=== PATIENT | female | born 2000 | race Native Hawaiian/Other Pacific Islander ===

== ENCOUNTER 2021-12-14 10:17 | Emergency (ER) | payer SELFPAY ==
[~2021-12-14] VITALS: Ht 152.4 cm; Wt 75.0 kg
[2021-12-14 11:54] VITALS: BP 106/64
== END 2021-12-14 12:02 | disposition home or self-care (01) ==
LOC: ER 10:17
DX: T19.2XXA Foreign body in vulva and vagina, initial encounter (principal); J45.909 Unspecified asthma, uncomplicated; F12.10 Cannabis abuse, uncomplicated; X58.XXXA Exposure to other specified factors, initial encounter; Y93.89 Activity, other specified; Y92.89 Other specified places as the place of occurrence of the external cause; Y99.8 Other external cause status